=== PATIENT | male | born 1985 | race American Indian/Alaskan Native ===

== ENCOUNTER 2017-04-01 19:27 | Inpatient (IN) | payer MEDICAID ==
[2017-04-01] MEDS ORDERED: TYLENOL PO ONE (21:34)
--- NOTE | 2017-04-01 22:09 | XRay Report ---
FINAL REPORT PROCEDURE: XR KNEE 3V RT TECHNIQUE: RIGHT knee radiographs, AP, lateral and sunrise views. CPT 70572 HISTORY: knee pain COMPARISON: No prior studies are available for comparison. FINDINGS: Fracture (s) and/or Dislocation(s): None . Alignment: Normal . Joint space(s): Normal . Soft tissues: Normal . Bone mineralization: Normal . Foreign bodies: None . IMPRESSION: Normal Examination.
[2017-04-02] MEDS ORDERED: CLEOCIN 900 MG/50 mL 900 MG/50 ML BAG IV ONE (00:35)
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
[2017-04-02] MEDS ORDERED: ZOSYN/NS 4.5GM/100ML 4.5 GM/100 ML VIAL IV ONE (01:00)
[2017-04-02] MEDS ORDERED: NACL 0.9% 1000 ML 1,000 ML IV ONE (01:11)
[2017-04-02] MEDS ORDERED: NACL 0.9% 1000 ML 1,000 ML ONE (01:14)
[2017-04-02 01:25] LABS: Basophils % (Auto) 0.8 % (0.0-1.8); Eosinophils % (Auto) 0.2 % (0.0-4.3); Hematocrit 41.5 % (35.5-45.6); Hemoglobin 14.1 gm/dl (11.8-15.2); Mean Corpuscular HGB Conc 34 % (32-34); Mean Corpuscular Hemoglobin 30 pg (28-32); Mean Corpuscular Volume 87 fl (84-94); Platelet Count 244 K/mm3 (140-440); Red Blood Count 4.76 M/mm3 (3.65-5.03); Red Cell Distribution Width 13.3 % (13.2-15.2)
[2017-04-02] MEDS ORDERED: VANCOMYCIN/NS 1 GM/250 ML 1 GM/250 ML BAG IV ONE (01:40)
[2017-04-02 01:43] LABS: Anion Gap 21 mmol/L; BUN/Creatinine Ratio 11; Blood Urea Nitrogen 11 mg/dL (9-20); Calcium 9.5 mg/dL (8.4-10.2); Carbon Dioxide 26 mmol/L (22-30); Chloride 96.5 mmol/L (98-107); Creatine Kinase 136 units/L (55-170); Glucose 109 mg/dL (75-100); Potassium 4.3 mmol/L (3.6-5.0); Sodium 139 mmol/L (137-145)
[2017-04-02 01:51] LABS: Erythrocyte Sedimentation Rate 29 mm/Hr (0-20)
[2017-04-02] MEDS ORDERED: DULCOLAX PR PRN (02:02)
[2017-04-02] MEDS ORDERED: MILK OF MAGNESIA PO PRN (02:02)
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
[2017-04-02] MEDS ORDERED: VANCOMYCIN PHARMACY TO DOSE IV SCH (03:00)
[2017-04-02] MEDS: ZOSYN/NS 4.5GM/100ML 4.5 GM/100 ML VIAL IV SCH ×2 (08:09→20:05)
[2017-04-02] MEDS: MORPHINE IV PRN (08:12)
[2017-04-02] MEDS: VANCOMYCIN 1,500 MG in NACL 0.9% 500 ML 500 ML IV SCH ×2 (09:48→20:06)
[2017-04-02] MEDS ORDERED: Fluarix Quad 2017-2018(36 MOS+ IM ONE (12:00)
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
--- NOTE | 2017-04-02 14:45 | Event Note ---
Date: 04/02/17 Patient seen and examined in no acute distress, states he is hungry. Dr Gonzalez saw and aspirated Knee,. will feed patient, obtain PT eval and anticipate discharge in am if remains stable.
[2017-04-02 16:38] LABS: Basophils Body Fluid 0 %; Eosinophils Body Fluid 0 %; Reactive Lymph Body Fluid 0 %
[2017-04-03] MEDS: MORPHINE IV PRN ×3 (01:43→18:37)
[2017-04-03] MEDS: VANCOMYCIN 1,500 MG in NACL 0.9% 500 ML 500 ML IV SCH ×3 (03:36→17:33)
[2017-04-03] MEDS: ZOSYN/NS 4.5GM/100ML 4.5 GM/100 ML VIAL IV SCH ×5 (04:34→23:41)
[2017-04-03 05:25] LABS: Hemoglobin 13.3 gm/dl (11.8-15.2); Mean Corpuscular HGB Conc 34 % (32-34); Mean Corpuscular Hemoglobin 30 pg (28-32); Mean Corpuscular Volume 88 fl (84-94); Platelet Count 248 K/mm3 (140-440); Red Blood Count 4.46 M/mm3 (3.65-5.03); Red Cell Distribution Width 13.3 % (13.2-15.2); White Blood Count 9.7 K/mm3 (4.5-11.0)
[2017-04-03 05:46] LABS: Anion Gap 17 mmol/L; BUN/Creatinine Ratio 11; Blood Urea Nitrogen 12 mg/dL (9-20); Calcium 8.7 mg/dL (8.4-10.2); Carbon Dioxide 25 mmol/L (22-30); Chloride 102.2 mmol/L (98-107); Glucose 99 mg/dL (75-100); Potassium 3.5 mmol/L (3.6-5.0); Sodium 141 mmol/L (137-145)
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
[2017-04-04] MEDS: ZOSYN/NS 4.5GM/100ML 4.5 GM/100 ML VIAL IV SCH ×4 (01:24→17:00)
[2017-04-04] MEDS: VANCOMYCIN 1,500 MG in NACL 0.9% 500 ML 500 ML IV SCH ×3 (02:50→17:01)
[2017-04-04] MEDS: MORPHINE IV PRN (13:02)
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
[2017-04-05] MEDS: ZOSYN/NS 4.5GM/100ML 4.5 GM/100 ML VIAL IV SCH ×5 (00:48→18:43)
[2017-04-05] MEDS: MORPHINE IV PRN ×3 (00:49→19:52)
[2017-04-05] MEDS: VANCOMYCIN 1,500 MG in NACL 0.9% 500 ML 500 ML IV SCH ×3 (03:17→18:18)
[2017-04-05] MEDS: ZOFRAN IV PRN (07:50)
--- NOTE | 2017-04-05 09:43 | Discharge Summary ---
Providers - Providers Date of Admission: 04/02/17 02:02 Date of discharge: 04/05/17 Attending physician: ZINA HIONJOSA 04/02/17 02:02 Consult to Physician [CONS] Routine Consulting Provider: JANNETTE GREEN Reason For Exam: Pain and swelling right knee Place consult to:: dr. green Notified:: Phone number called:: [phone] Was contact made?: No Time called:: 10:14 Comment:: mail box full 04/02/17 14:44 Physical Therapy Evaluation and Treat [CONS] Routine Comment: Reason For Exam: debility secondary to knee pain 04/03/17 16:40 Consult to PICC Line RN [CONS] Routine Reason For Exam: poor IV acess Type Line:: PICC Primary care physician: [employer] Hospitalization Reason for admission: Cellititis with right knee, and right knee effusion Condition: Fair Pertinent studies: right knee aspiration Procedures: right knee joint aspiration Hospital course: Patient is 32 yo presented on 04/02/17 to the ED with pain and swelling right knee and fever for 3 days. Patient states pain is 8/10, over right knee, no radiation, worse on movement. Symptoms getting worse therefore came to hospital for evaluation. He does not have a PCP and was not on any medications. In ED, X ray right knee was unremarkable. He will be admitted for cellulites and possible infection right knee joint. Pt had leukocytosis. No fever. Dr. Green was consulted. Right knee joint aspiration was done as it was fluctuant. Mainly bloody fluid was aspirated. Culture grow no organism. Blood culture was negative. Pt was commenced on iv Vanc and Zosyn. Leukocytosis resolved. Anticoagulation was helf for DVT propjhylaxis adnit was though rob pt may need more surgical procedure further more hemoathrosis may be worsened by anticoagulation. Discussed with orthopedic surgeon, Dr. Green who said that the residual effusion was more of hemoarthrosis and will not need to be drain. He anticipates it will resolve on its own. He wanted pt to follow up with him. I will therefor be discharging the pt on oral antibiotic. Mild hypokalemia is corrected Disposition: DC-01 TO HOME OR SELFCARE Core Measure Documentation - Palliative Care Palliative Care/ Comfort Measures: Not Applicable - Core Measures Any of the following diagnoses?: none Exam - Constitutional Vitals: Temp Pulse Resp BP Pulse Ox 96.6 F L 65 20 135/93 97 04/05/17 07:23 04/05/17 07:23 04/05/17 07:23 04/05/17 07:23 04/05/17 07:23 General appearance: Present: no acute distress, well-nourished - EENT Eyes: Present: PERRL - Neck Neck: Present: supple, normal ROM - Respiratory Respiratory effort: normal Respiratory: bilateral: CTA - Cardiovascular Heart Sounds: Present: S1 & S2. Absent: rub, click - Extremities Extremities: pulses symmetrical, No edema Peripheral Pulses: within normal limits - Abdominal General gastrointestinal: Present: soft, non-tender, non-distended, normal bowel sounds - Integumentary Integumentary: Present: clear, warm, dry - Musculoskeletal Musculoskeletal: strength equal bilaterally, other (right knee joint effusion whic is hemoarthrosis) - Psychiatric Psychiatric: appropriate mood/affect, intact judgment & insight - Neurologic Neurologic: CNII-XII intact, moves all extremities Plan Activity: advance as tolerated, up only with assistance Diet: regular, low salt Follow up with: PRIMARY CAREMD [Primary Care Provider] - 3-5 Days JANNETTE GREEN MD [Staff Physician] - 3 Days Prescriptions: HYDROcodone/APAP 5-325 [[place] 5-325 mg TAB] 1 each PO Q4HR PRN #24 tablet PRN Reason: Pain Levofloxacin [Levaquin] 750 mg PO QDAY #7 tablet
[2017-04-05 12:39] LABS: Albumin 3.6 g/dL (3.9-5); Albumin/Globulin Ratio 1.2 %; Bilirubin,Total 0.6 mg/dL (0.1-1.2); Calcium 8.7 mg/dL (8.4-10.2); Chloride 104.9 mmol/L (98-107); Total Protein 6.5 g/dL (6.3-8.2)
[2017-04-05 12:44] LABS: Basophils % (Auto) 0.5 % (0.0-1.8); Hematocrit 35.9 % (35.5-45.6); Hemoglobin 12.2 gm/dl (11.8-15.2); Mean Corpuscular HGB Conc 34 % (32-34); Mean Corpuscular Hemoglobin 30 pg (28-32); Mean Corpuscular Volume 87 fl (84-94); Platelet Count 294 K/mm3 (140-440); Red Blood Count 4.12 M/mm3 (3.65-5.03); Red Cell Distribution Width 12.9 % (13.2-15.2); White Blood Count 10.2 K/mm3 (4.5-11.0)
[2017-04-05] MEDS ORDERED: Fluarix Quad 2017-2018(36 MOS+ IM ONE (16:00)
[2017-04-05] MEDS ORDERED: NACL 0.9% 1000 ML 1,000 ML IV ONE (17:43)
[2017-04-05] MEDS: TYLENOL PO PRN (22:29)
[2017-04-06] MEDS: ZOSYN/NS 4.5GM/100ML 4.5 GM/100 ML VIAL IV SCH ×2 (00:42→05:16)
[2017-04-06] MEDS: VANCOMYCIN 1,500 MG in NACL 0.9% 500 ML 500 ML IV SCH (01:54)
[2017-04-06 02:50] LABS: Albumin 3.4 g/dL (3.9-5); Bilirubin,Total 0.4 mg/dL (0.1-1.2); Calcium 8.7 mg/dL (8.4-10.2); Chloride 103.4 mmol/L (98-107); Total Protein 6.8 g/dL (6.3-8.2)
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
--- NOTE | 2017-04-06 08:58 | Ultrasound Report ---
ULTRASOUND RENAL BILATERAL HISTORY: Acute renal insufficiency. TECHNIQUE: transabdominal ultrasound with color Doppler interrogation. FINDINGS: The right kidney measures 11.0cm. Right renal cortex: 1.8cm. The left kidney measures 10.9cm. Left renal cortex: 1.8cm. The kidneys are normal size, contour and position. There is increased renal parenchymal echotexture bilaterally. Corticomedullary differentiation is preserved. No evidence for cystic disease, mass, calculus, hydronephrosis or perinephric fluid. The views of the bladder and the region of the ureters appear normal. IMPRESSION: Renal parenchymal disease.
[2017-04-06] MEDS ORDERED: NACL 0.9% 1000 ML 1,000 ML IV SCH (09:00)
[2017-04-06] MEDS: AUGMENTIN 875 MG PO SCH ×2 (09:57→21:24)
[2017-04-06] MEDS: TYLENOL PO PRN ×2 (10:03→14:11)
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
[2017-04-06] MEDS ORDERED: Fluarix Quad 2017-2018(36 MOS+ IM ONE (12:00)
[2017-04-06] MEDS ORDERED: ZOSYN/NS 4.5GM/100ML 4.5 GM/100 ML VIAL IV SCH (14:00)
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
[2017-04-06] MEDS ORDERED: NACL 0.9% 1000 ML 1,000 ML IV ONE (22:21)
[2017-04-07] MEDS: TYLENOL PO PRN ×2 (05:56→21:58)
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
--- NOTE | 2017-04-07 10:13 | Cat Scan Report ---
CT scan of head without IV contrast: History: Subdural contusion. Findings: Ventricles are normal in size and midline the patient. No evidence of acute each kidney, hemorrhage or mass. No extra-axial fluid collection. Normal brainstem and cerebellum. Minimal mucosal thickening right maxillary sinus Impression: No acute intracranial abnormality. Minimal mucosal thickening right maxillary sinus.
[2017-04-07] MEDS: AUGMENTIN 875 MG PO SCH ×2 (10:23→21:36)
[2017-04-07 11:30] LABS: Bilirubin,Total 0.4 mg/dL (0.1-1.2); Calcium 8.6 mg/dL (8.4-10.2); Chloride 104.4 mmol/L (98-107); Potassium 4.1 mmol/L (3.6-5.0); Total Protein 6.5 g/dL (6.3-8.2)
[2017-04-07 12:00] LABS: Albumin 3.6 g/dL (3.9-5); Albumin/Globulin Ratio 1.2 %; Uric Acid 4.9 mg/dL (3.5-7.6)
[2017-04-07 14:35] LABS: Bilirubin,Urine NEG (Negative); Blood,Urine NEG (Negative); Ketones,Urine NEG (Negative); Leukocyte Esterase,Urine TR (Negative); Mucus,Urine FEW /HPF; Nitrite,Urine NEG (Negative); Protein,Urine <15 mg/dL mg/dL (Negative); Urobilinogen,Urine < 2.0 mg/dL (<2.0)
[2017-04-07] MEDS: MORPHINE IV PRN (16:22)
--- NOTE | 2017-04-07 18:27 | Progress Note ---
Assessment and Plan - Patient Problems (1) Acute kidney failure with tubular necrosis Current Visit: Yes Status: Acute Plan to address problem: Probably vancomycin-induced toxicity. Kidney function is now improving. Continue volume repletion and monitor electrolytes and renal function. (2) Effusion, right knee Current Visit: Yes Status: Acute Plan to address problem: Continue antibiotics and follow cultures (3) Hyperkalemia Current Visit: Yes Status: Acute Plan to address problem: Potassium back to normal. Follow up Subjective Date of service: 04/07/17 Principal diagnosis: Acute kidney injury Interval history: Patient seen lying in bed. He has no complaint except he had nausea earlier and actually vomited once. Feels better now. Objective - Exam Narrative Exam: Young -[place] male who is lying in bed in no acute distress in no acute distress HEENT: Scarred face, pink oral mucous membrane Neck: Supple, no venous distention CVS: S1S2 RRR with no murmur, rub or gallop Chest: Clear to auscultation Abdomen: Protuberant, soft, nontender, no organomegaly, bowel sounds are present Extremities: No edema Neuro: Awake, alert no focal deficits - Vital Signs Vital signs: Vital Signs - 12hr 04/07/17 04/07/17 07:25 15:28 Temperature 98.7 F 99.7 F H Pulse Rate 68 73 Respiratory 20 20 Rate Blood Pressure 140/88 145/79 O2 Sat by Pulse 96 98 Oximetry - Lab 04/05/17 11:25 04/07/17 11:17 Most recent lab results Calcium 8.6 mg/dL (8.4-10.2) 04/07/17 11:17 Urine Creatinine 106.8 mg/dL (0.1-20.0) H 04/07/17 07:10 Urine Sodium 109 mmol/L 04/07/17 07:10 Urine Total Protein 11 mg/dL (5-11.8) 04/07/17 07:10
[2017-04-07] MEDS: NACL 0.9% 1000 ML 1,000 ML IV SCH (20:27)
[2017-04-08] MEDS: MORPHINE IV PRN (03:06)
[2017-04-08 06:31] LABS: Albumin 3.3 g/dL (3.9-5); Albumin/Globulin Ratio 1.2 %; Bilirubin,Total 0.3 mg/dL (0.1-1.2); Calcium 8.3 mg/dL (8.4-10.2); Chloride 105.4 mmol/L (98-107); Potassium 4.5 mmol/L (3.6-5.0); Total Protein 6.1 g/dL (6.3-8.2); Uric Acid 4.9 mg/dL (3.5-7.6)
[2017-04-08] MEDS: NACL 0.9% 1000 ML 1,000 ML IV SCH (07:42)
[2017-04-08] MEDS: TYLENOL PO PRN (07:45)
[2017-04-08] MEDS: ZOFRAN IV PRN (07:56)
[2017-04-08 08:17] VITALS: BP 142/98
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
--- NOTE | 2017-04-08 08:47 | Progress Note ---
Assessment and Plan - Patient Problems (1) Acute kidney failure with tubular necrosis Current Visit: Yes Status: Acute Plan to address problem: Probably vancomycin-induced toxicity. Kidney function is now improving. Continue volume repletion and monitor electrolytes and renal function. Okay to discharge from renal standpoint. Discussed with Dr. GOFF (2) Effusion, right knee Current Visit: Yes Status: Acute Plan to address problem: Continue antibiotics and follow cultures (3) Hyperkalemia Current Visit: Yes Status: Acute Plan to address problem: Potassium back to normal. Follow up Subjective Date of service: 04/08/17 Principal diagnosis: Acute kidney injury Interval history: Patient seen lying in bed. He has no complaint except he had nausea again earlier and actually vomited once. Feels better now. Objective - Exam Narrative Exam: Young -[place] male who is lying in bed in no acute distress in no acute distress HEENT: Scarred face, pink oral mucous membrane Neck: Supple, no venous distention CVS: S1S2 RRR with no murmur, rub or gallop Chest: Clear to auscultation Abdomen: Protuberant, soft, nontender, no organomegaly, bowel sounds are present Extremities: No edema Neuro: Awake, alert no focal deficits - Vital Signs Vital signs: Vital Signs - 12hr 04/07/17 04/08/17 22:00 07:22 Temperature 98.8 F Pulse Rate 63 Respiratory 22 Rate Blood Pressure 142/98 O2 Sat by Pulse 98 97 Oximetry - Lab 04/05/17 11:25 04/08/17 05:46 Most recent lab results Calcium 8.3 mg/dL (8.4-10.2) L 04/08/17 05:46 Urine Creatinine 106.8 mg/dL (0.1-20.0) H 04/07/17 07:10 Urine Sodium 109 mmol/L 04/07/17 07:10 Urine Total Protein 11 mg/dL (5-11.8) 04/07/17 07:10
[2017-04-08] MEDS: AUGMENTIN 875 MG PO SCH (10:37)
[2017-04-08] MEDS ORDERED: ZOFRAN IV ONE (13:08)
[2017-04-08] MEDS ORDERED: ZOFRAN IM ONE (14:00)
--- NOTE | 2017-04-14 15:26 | Query-Infection ---
Danielle Sweet Vilma Date:__04/14/17 Traveling Phlebotomist/CDS:____Kaley / Juan Phone#:___[phone] Exercise your independent professional judgment when responding to this query. Questions asked do not imply a particular answer is desired or expected. We greatly appreciate your clarification on this issue. Clinical Documentation States: 32 year old male was admitted on 04/02/17 The discharge summary states " Patient is 32 yo presented on 04/02/17 to the ED with pain and swelling right knee and fever for 3 days. Patient states pain is 8/10, over right knee, no radiation, worse on movement. Discharge diagnosis Cellulites of right knee D/C'd vanc and zosyn started Augmentin " WBC: 12 Temperature: 100 Pulse rate: 98 Respiratory rate: 22 Clinical findings show: (please check applicable parameters) Infection, known /suspected, with some of the following indicators; Specify the infection: 3 General parameters [ ] Fever (core temp >38.30C or 100.40F) [ ] Hypothermia (core temp <36C) [ x] Heart rate >90 bpm [x ] Tachypnea: >20 bpm or pCO2 < 32 mmHg [ ] Altered mental status [ ] Significant edema / +ve fluid balance (>20 ml/kg 24 h) [ ] Hyperglycemia (Bl. glucose >110 mg/dl) w/o diabetes Inflammatory parameters [ ] Leukocytosis (white blood cell count >12,000/l) [ ] Leukopenia (white blood cell count <4,000/l) [ ] Bandemia (immature WBC > 10%) [ ] Leucocyte Left Shift [ ] Plasma procalcitonin>2 SD above the normal value Hemodynamic and tissue perfusion parameters [ ] Arterial hypotension(SBP <90 mmHg, MAP <70 mmHg,or a SBP drop >40 mmHg in adults) [ ] Hyperlactatemia (>3 mmol/l) [ ] Anion Gap (> 11mEG/l) [ ] Decreased capillary refill or mottling Organ dysfunction parameters [ ] Arterial hypoxemia (PaO2/FIO2 <300) [ ] Creatinine increase =0.5 mg/dl [ ] Acute oliguria (urine output <0.5 ml | kg |h or 45 mM/l for at least 2 hrs) [ ] Coagulation abnormalities (INR >1.5 or activated partial thromboplastin time >60 s) [ ] Ileus (absent dyana wel sounds) [ ] Thrombocytopenia (platelet count <100,000/l) [ ] Hyperbilirubinemia (plasma total bilirubin >4 mg/dl) According to the clinical indications above, can Bacteremia be further specified? If so, please indicate below and in your Progress Notes and/ or Discharge Summary. Indicate if the condition was present on admission. PHYSICIAN RESPONSE: [ ] Sepsis [ ] Severe Sepsis [ ] Septic Shock [ ] Septicemia [ ] Sepsis now resolved [ ] SIRS due to non-infectious cause with organ dysfunction [ X] SIRS due to non-infectious cause without organ dysfunction [ ] Other: [ ] Comment/Explanation: Present on Admission: [ X] Yes (Y) [ ] Clinically undeterminable (W) [ ] No (N) [ ] Ruled Out Please also document response in your Progress Notes and/or Discharge Summary and indicate if the condition was present on admission Notes: SIRS/ SIRS WITH ORGAN DYSFUNCTION Systemic inflammatory response syndrome (SIRS) generally refers to the systemic response to trauma/hurst or other insult such as Acute Myocardial Infarction, Acute Pancreatitis, and Major Surgery with symptoms including fever, tachycardia , tachypnea, and leukocytosis (1). BACTEREMIA Presence of viable bacteria in the circulating blood (2). This term is reserved for patients that do not manifest above SIRS response. SEPTICEMIA Generally refers to a systemic disease associated with the presence of pathological microorganisms or toxins in the blood, which can include bacteria, viruses, fungi or other organisms (1). SEPSIS Generally refers to SIRS due infection (1). SEVERE SEPSIS Generally refers to sepsis associated with acute organ dysfunction (1). SEPTIC SHOCK Generally refers to circulatory failure associated with severe sepsis (2), and defined as hypotension or hypoperfusion despite adequate fluid resuscitation (1 hour) (3). REFERENCES: 1. [employer]/Society of Critical Care Medicine Consensus Conference. Definitions for sepsis and organ failure and guidelines for the use of innovative therapies in sepsis. Critical Care Med 1992;20:864 - 74. 2. Julio C canseco MM, Inocencio WATSON, Derrick ANDRIA, Celso E, Omega D, Cesar D, Fonseca J, [place] SM , Higinio JL, Angie G; International Sepsis Definitions Conference. 2001 SCCM/ESICM/ACCP/ATS/SIS International Sepsis Definitions Conference. Intensive Care Med. 2002 Apr;29(4):530-8. Epub 2002Jul 21. Review. PubMed PMID:[id number] 3. ICD-9-CM Official Guidelines for Coding and Reporting 4. Medscape Drugs, Diseases and Procedures references 5. [employer] Textbook of Internal Medicine. 18th Edition MTDD
== END 2017-04-08 14:17 | disposition home or self-care (01) | DRG 564 ==
LOC: ED 19:27 → 3A 04-02 02:02
PROVIDERS: ADMIT Internal Medicine; ATTEND Internal Medicine
PROC: 0S9C3ZZ Drainage of Right Knee Joint, Percutaneous Approach (ICD-10-PCS; principal; 2017-04-02)
PROC: 3E0234Z Introduction of Serum, Toxoid and Vaccine into Muscle, Percutaneous Approach (ICD-10-PCS; 2017-04-02)
DX: M25.461 Effusion, right knee (principal); N17.0 Acute kidney failure with tubular necrosis; L03.115 Cellulitis of right lower limb; S40.011A Contusion of right shoulder, initial encounter; D72.829 Elevated white blood cell count, unspecified; N14.1 Nephropathy induced by other drugs, medicaments and biological substances; K29.70 Gastritis, unspecified, without bleeding; F17.200 Nicotine dependence, unspecified, uncomplicated; E87.5 Hyperkalemia; T36.8X5A Adverse effect of other systemic antibiotics, initial encounter; Y92.89 Other specified places as the place of occurrence of the external cause; Z82.49 Family history of ischemic heart disease and other diseases of the circulatory system; Z72.89 Other problems related to lifestyle; Z79.899 Other long term (current) drug therapy; Z89.022 Acquired absence of left finger(s); Z23 Encounter for immunization; R65.10 Systemic inflammatory response syndrome (SIRS) of non-infectious origin without acute organ dysfunction
CPT/HCPCS: 36415; 70450; 76770; 80048; 80053; 80202; 81001; 82140; 82550; 82570; 84156; 84300; 84550; 85025; 85027; 85048; 85652; 86140; 86160; 86162; 87040; 87116; 89050; 89051; 90686; 96365; 96367; 99406; J2270; J2405; J2543; J3370; J7030; J7040